=== PATIENT | female | born 1965 | race Caucasian/White ===

== ENCOUNTER 2020-01-30 12:00 | Emergency (ER) | payer OTHER ==
[~2020-01-30] VITALS: Ht 165.1 cm; Wt 59.1 kg
[~2020-01-30 12:00] MED LIST: LEVAQUIN500 MG PO; PROTONIX40 MG PO; SOMA350 MG PO; [UNRECOGNIZED DRUG - OTHER] PO
[2020-01-30 12:10] VITALS: Ht 165.1 cm; Wt 59.1 kg
[2020-01-30 12:54] LABS: CALC OSMOLALITY 275 mosm/kg (275-300); CALCIUM 8.5 mg/dL (8.5-10.1); CARBON DIOXIDE 27.3 mmol/L (21.0-32.0); CHLORIDE - SERUM 103 mmol/L (98-107); CREATININE - SERUM 0.9 mg/dL (0.6-1.3); GLUCOSE 89 mg/dL (74-106); POTASSIUM - SERUM 4.1 mmol/L (3.5-5.1); SODIUM 137 mmol/L (136-145); UREA NITROGEN 20 mg/dL (7-18); eGFR NON AFRICAN AMERICAN 70 mL/min (90-120)
[2020-01-30 13:02] LABS: HEMATOCRIT 48.4 % (36.0-48.0); HEMOGLOBIN 15.4 g/dL (12-16); LYMPHOCYTES 36.3 % (15-50); MCH 29.8 pg (26.0-34.0); MCHC 31.8 g/dL (31.0-37.0); MCV 93.8 fL (80.0-100.0); NEUTROPHILS 55.7 % (40-80); RBC 5.16 10x6/uL (4.00-5.40); RDW 12.9 % (11.5-14.5); WBC 9.7 10x3/uL (4.8-10.8)
[2020-01-30 13:03] LABS: PLATELET COUNT 354 10x3/uL (130-400)
[2020-01-30 13:11] LABS: ALBUMIN 3.7 g/dL (3.4-5.0); ALKALINE PHOSPHATASE 114 U/L (30-120); ALT (SGPT) 59 U/L (10-68); BILIRUBIN - TOTAL 0.38 mg/dL (0.2-1.3); CKMB 0.8 U/L (0.0-3.6); CREATINE KINASE 58 UL (21-215); PROTEIN - SERUM 7.2 g/dL (6.4-8.2); TROPONIN-I < 0.017 ng/mL (0.000-0.060)
[2020-01-30 13:58] VITALS: BP 132/69
== END 2020-01-30 14:00 | disposition home or self-care (01) ==
LOC: D.ER 12:00
PROVIDERS: Family Medicine
DX: R07.9 Chest pain, unspecified (principal); J44.9 Chronic obstructive pulmonary disease, unspecified; Z72.0 Tobacco use